=== PATIENT | female | born 1945 | race Caucasian/White ===

== ENCOUNTER 2017-02-28 10:16 | Emergency (ER) | payer MEDICARE, OTHER ==
[~2017-02-28] VITALS: Ht 157.5 cm; Wt 56.0 kg
[~2017-02-28 10:16] MED LIST: A STATIN; BP MEDS; LIDO5DIS35 TD; LOVOXYL
[2017-02-28 10:29] VITALS: BP 153/77; PULSE 78; RESP 18; TEMP 98.1; O2SAT 97
[2017-02-28] MEDS ORDERED: SIMV20TA PO (10:35)
[2017-02-28] MEDS ORDERED: ZOLP5TAB3 PO (10:35)
[2017-02-28] MEDS ORDERED: LEVO25TA4 PO (10:35)
[2017-02-28] MEDS ORDERED: AMLO10TA2 PO (10:35)
[2017-02-28] MEDS ORDERED: FAMOTIDINE 20 MG/2 ML VIAL IV PUSH ONE (10:45)
[2017-02-28] MEDS ORDERED: SODIUM CHLORIDE 0.9% FLUSH 10 ML FLUSH IV FLUSH PRN (10:45)
[2017-02-28] MEDS ORDERED: LIDOCAINE VISCOUS 2% SOLN 15 ML UDC PO ONE (10:45)
[2017-02-28] MEDS ORDERED: ALUMINUM/MAGNESIUM/SIMETH 30 ML CUP PO ONE (10:45)
[2017-02-28 10:58] LABS: AUTOMATED NEUTROPHIL # 4.1 TH/MM3 (1.8-7.7); BASOPHIL % 0.4 % (0.0-2.0); EOSINOPHIL # 0.1 TH/MM3 (0-0.4); EOSINOPHIL % 1.1 % (0.0-4.0); HEMATOCRIT 39.1 % (35.0-46.0); HEMO FLAGS DIFF FINAL; LYMPH % 25.1 % (9.0-44.0); LYMPHOCYTE # 1.7 TH/MM3 (1.0-4.8); MEAN CELL VOLUME 86.6 FL (80.0-100.0); MEAN CORPUSCULAR HEMOGLOBIN 28.5 PG (27.0-34.0); MEAN CORPUSCULAR HGB CONC 32.9 % (32.0-36.0); MONO % 10.9 % (0.0-8.0); NEUT % 62.5 % (16.0-70.0); PLATELET COUNT 282 TH/MM3 (150-450); RED BLOOD COUNT 4.52 MIL/MM3 (4.00-5.30); RED CELL DISTRIBUTION WIDTH 13.7 % (11.6-17.2); WHITE BLOOD COUNT 6.6 TH/MM3 (4.0-11.0)
--- NOTE | 2017-02-28 10:58 | PD ---
HPI Chief Complaint: GI Complaint Time Seen by Provider: 10:35 Travel History International Travel<30 days: No Contact w/Intl Traveler<30days: No Traveled to known affect area: No History of Present Illness HPI The patient is a 71-year-old female who presents to the emergency department for a five-week history of intermittent nausea, bloating, and epigastric discomfort. The patient saw her primary physician in [place] who diagnosed her with GERD. The patient was initially placed on Nexium, however, continue to have nausea and be symptomatic. Therefore, the Nexium was stopped and the patient was placed on Zantac. The patient states her symptoms are worse after eating, lying supine, and occasionally awaken her at night. The patient's symptoms are improved when she gets up and ambulates. The patient does note decreased appetite secondary to her current symptoms. The only previous abdominal surgery was a D&C, she denies any known history of choledocholithiasis, cholelithiasis, or pancreatitis. The patient denies any current chest pain or shortness of breath. The patient does occasionally complain of pain that radiates up to the jaw when she is lying supine. The patient does have an appointment with a senior technical business analyst on March 29, after she returns home to [place]. The patient denies any fever, chills, or sweats. Patient has a history of chronic constipation and takes MiraLAX daily, denies any change in bowel habits. PFSH Past Medical History High Cholesterol: Yes Hypertension: Yes Immunizations Current: Yes Thyroid Disease: Yes Triglycerides - High: Yes Influenza Vaccination: Yes ?: Not Menopausal: Yes Dilation and Curettage (D&C): Yes Past Surgical History Other Surgery: Yes (LUMPECTOMY ) Social History Alcohol Use: No Tobacco Use: No Substance Use: No Allergies-Medications (Allergen,Severity, Reaction): Coded Allergies: Sulfa (Verified Adverse Reaction, Mild, Rash, 02/28/17) Reported Meds & Prescriptions Reported Meds & Active Scripts Active Reported Zolpidem (Zolpidem Tartrate) 5 Mg Tab 5 Mg PO HS PRN Simvastatin 20 Mg Tab 20 Mg PO DAILY Amlodipine (Amlodipine Besylate) 10 Mg Tab 10 Mg PO DAILY Levothyroxine (Levothyroxine Sodium) 25 Mcg Tab 25 Mcg PO DAILY Review of Systems Except as stated in HPI: all other systems reviewed are Neg General / Constitutional: No: Fever Cardiovascular: No: Chest Pain or Discomfort Respiratory: No: Shortness of Breath Gastrointestinal: Positive: Nausea, Constipation (chronic constipation), Indigestion, Loss of Appetite, No: Vomiting, Diarrhea, Abdominal Pain, Changes in Bowel Habits Genitourinary: No: Dysuria Physical Exam Narrative GENERAL: Awake, alert, pleasant 71-year-old female who appears her stated age and is in no acute respiratory distress. SKIN: Focused skin assessment warm/dry. HEAD: Atraumatic. Normocephalic. EYES: Pupils equal and round. No scleral icterus. No injection or drainage. ENT: No nasal bleeding or discharge. Mucous membranes pink and moist. NECK: Trachea midline. No JVD. CARDIOVASCULAR: Regular rate and rhythm. No murmur appreciated. RESPIRATORY: No accessory muscle use. Clear to auscultation. Breath sounds equal bilaterally. GASTROINTESTINAL: Abdomen soft, minimal epigastric tenderness, negative Blanca' s. Negative McBurney's. No rebound tenderness, guarding, or rigidity. MUSCULOSKELETAL: No obvious deformities. No clubbing. No cyanosis. No edema. NEUROLOGICAL: Awake and alert. No obvious cranial nerve deficits. Motor grossly within normal limits. Normal speech. PSYCHIATRIC: Appropriate mood and affect; insight and judgment normal. Data Data Last Documented VS Vital Signs Date Time Temp Pulse Resp B/P Pulse Ox O2 Delivery O2 Flow Rate FiO2 02/28/17 11:00 98 Room Air 02/28/17 10:29 98.1 78 18 153/77 Orders Complete Blood Count With Diff (02/28/17 10:45) Comprehensive Metabolic Panel (02/28/17 10:45) Lipase (02/28/17 10:45) Iv Access Insert/Monitor (02/28/17 10:45) Ecg Monitoring (02/28/17 10:45) Oximetry (02/28/17 10:45) Sodium Chloride 0.9% Flush (Ns Flush) (02/28/17 10:45) Famotidine Inj (Pepcid Inj) (02/28/17 10:45) Al-Mag Hy-Si 40-40-4 Mg/Ml Liq (Mag-Al P (02/28/17 10:45) Lidocaine 2% Viscous (Xylocaine 2% Visco (02/28/17 10:45) Troponin I (02/28/17 10:45) Creatine Kinase (Cpk) (02/28/17 10:45) Labs Laboratory Tests Test 02/28/17 10:30 White Blood Count 6.6 TH/MM3 Red Blood Count 4.52 MIL/MM3 Hemoglobin 12.9 GM/DL Hematocrit 39.1 % Mean Corpuscular Volume 86.6 FL Mean Corpuscular Hemoglobin 28.5 PG Mean Corpuscular Hemoglobin 32.9 % Concent Red Cell Distribution Width 13.7 % Platelet Count 282 TH/MM3 Mean Platelet Volume 8.3 FL Neutrophils (%) (Auto) 62.5 % Lymphocytes (%) (Auto) 25.1 % Monocytes (%) (Auto) 10.9 % Eosinophils (%) (Auto) 1.1 % Basophils (%) (Auto) 0.4 % Neutrophils # (Auto) 4.1 TH/MM3 Lymphocytes # (Auto) 1.7 TH/MM3 Monocytes # (Auto) 0.7 TH/MM3 Eosinophils # (Auto) 0.1 TH/MM3 Basophils # (Auto) 0.0 TH/MM3 CBC Comment DIFF FINAL Differential Comment Sodium Level 146 MEQ/L Potassium Level 3.5 MEQ/L Chloride Level 107 MEQ/L Carbon Dioxide Level 30.9 MEQ/L Anion Gap 8 MEQ/L Blood Urea Nitrogen 15 MG/DL Creatinine 0.63 MG/DL Estimat Glomerular Filtration 93 ML/MIN Rate Random Glucose 94 MG/DL Calcium Level 9.5 MG/DL Total Bilirubin 0.5 MG/DL Aspartate Amino Transf 17 U/L (AST/SGOT) Alanine Aminotransferase 21 U/L (ALT/SGPT) Alkaline Phosphatase 95 U/L Total Creatine Kinase 76 U/L Troponin I LESS THAN 0.02 NG/ML Total Protein 7.5 GM/DL Albumin 3.7 GM/DL Lipase 103 U/L [facility] Medical Decision Making Medical Screen Exam Complete: Yes Emergency Medical Condition: Yes Medical Record Reviewed: Yes Interpretation(s) EKG reveals normal sinus rhythm with a rate of 72. Nonspecific T wave changes. Laboratory Tests Test 02/28/17 10:30 White Blood Count 6.6 TH/MM3 Red Blood Count 4.52 MIL/MM3 Hemoglobin 12.9 GM/DL Hematocrit 39.1 % Mean Corpuscular Volume 86.6 FL Mean Corpuscular Hemoglobin 28.5 PG Mean Corpuscular Hemoglobin 32.9 % Concent Red Cell Distribution Width 13.7 % Platelet Count 282 TH/MM3 Mean Platelet Volume 8.3 FL Neutrophils (%) (Auto) 62.5 % Lymphocytes (%) (Auto) 25.1 % Monocytes (%) (Auto) 10.9 % Eosinophils (%) (Auto) 1.1 % Basophils (%) (Auto) 0.4 % Neutrophils # (Auto) 4.1 TH/MM3 Lymphocytes # (Auto) 1.7 TH/MM3 Monocytes # (Auto) 0.7 TH/MM3 Eosinophils # (Auto) 0.1 TH/MM3 Basophils # (Auto) 0.0 TH/MM3 CBC Comment DIFF FINAL Differential Comment Sodium Level 146 MEQ/L Potassium Level 3.5 MEQ/L Chloride Level 107 MEQ/L Carbon Dioxide Level 30.9 MEQ/L Anion Gap 8 MEQ/L Blood Urea Nitrogen 15 MG/DL Creatinine 0.63 MG/DL Estimat Glomerular Filtration 93 ML/MIN Rate Random Glucose 94 MG/DL Calcium Level 9.5 MG/DL Total Bilirubin 0.5 MG/DL Aspartate Amino Transf 17 U/L (AST/SGOT) Alanine Aminotransferase 21 U/L (ALT/SGPT) Alkaline Phosphatase 95 U/L Total Creatine Kinase 76 U/L Troponin I LESS THAN 0.02 NG/ML Total Protein 7.5 GM/DL Albumin 3.7 GM/DL Lipase 103 U/L Differential Diagnosis Differential diagnosis includes gastritis, GERD, esophagitis, Martinez's esophagus, peptic ulcer disease, pancreatitis, biliary colic, cholelithiasis, angina. Narrative Course IV was established, labs were drawn and sent, and the patient was placed on cardiac telemetry monitoring and continuous pulse oximetry monitoring. EKG was ordered and interpreted. The patient was administered Pepcid intravenously and GI cocktail. Labs are unremarkable except for sodium of 146. LFTs and lipase are normal. Troponin and CPK are unremarkable. Patient's symptoms have been ongoing, may be secondary to gastritis and/or GERD with possible secondary esophagitis and/or Martinez's esophagus. The patient is advised to take a proton pump inhibitor and Zantac daily and a follow-up with gastroenterology. The patient is also advised that she may benefit from endoscopy. The patient will be provided a copy of her labs at discharge as well as a prescription for Protonix and Zantac. Diagnosis Primary Impression: Gastritis Qualified Code: K29.70 - Gastritis, presence of bleeding unspecified, unspecified chronicity, unspecified gastritis type Patient Instructions: General Instructions Additional Instructions: Please provide a patient a copy of her labs at discharge. Protonix once a day and Zantac twice a day as directed. Follow-up with gastroenterology. You may benefit from outpatient endoscopy. Med/Other Pt SpecificInfo: Prescription(s) given Scripts Ranitidine (Zantac)150 Mg [id number] Mg PO BID #60 TAB Ref 0 Prov:Shyam Gallagher MD 02/28/17 Pantoprazole (Protonix)40 Mg Tab40 Mg PO DAILY #30 TAB Ref 0 Prov:Shyam Gallagher MD 02/28/17 Disposition: 01 DISCHARGE HOME Condition: Stable Shyam Gallagher MD Feb 28, 2017 10:58
[2017-02-28 11:00] VITALS: O2SAT 98
[2017-02-28 11:03] LABS: CHLORIDE 107 MEQ/L (98-107); POTASSIUM 3.5 MEQ/L (3.5-5.1); SODIUM (NA) 146 MEQ/L (136-145)
[2017-02-28 11:07] LABS: ANION GAP 8 MEQ/L (5-15); BICARBONATE 30.9 MEQ/L (21.0-32.0); BLOOD UREA NITROGEN 15 MG/DL (7-18)
[2017-02-28 11:10] LABS: ALT (GPT) 21 U/L (10-53); AST (GOT) 17 U/L (15-37); GLOMERULAR FILTRATION RATE 93 ML/MIN (>89)
[2017-02-28 11:11] LABS: TOTAL BILIRUBIN ADULT 0.5 MG/DL (0.2-1.0)
[2017-02-28 11:13] LABS: ALKALINE PHOSPHATASE 95 U/L (45-117)
[2017-02-28 11:14] LABS: CREATINE KINASE 76 U/L (26-192)
[2017-02-28] MEDS ORDERED: PROT40TA PO (11:45)
[2017-02-28] MEDS ORDERED: ZANT150T2 PO (11:45)
[2017-02-28 11:50] VITALS: BP 110/63; PULSE 80; RESP 16; O2SAT 98
--- NOTE | 2017-03-01 10:33 | EKG ---
Date Performed: 02/28/2017 Time Performed: 10:23:00 PTAGE: 71 years EKG: Sinus rhythm Left anterior fascicular block Borderline ECG NO PREVIOUS TRACING DOCTOR: Leona Mcghee Interpretating Date/Time 03/01/2017 10:27:08
== END 2017-02-28 11:57 | disposition home or self-care (01) ==
LOC: PHED 10:16
DX: K29.70 Gastritis, unspecified, without bleeding (principal); K59.09 Other constipation; K21.9 Gastro-esophageal reflux disease without esophagitis; E78.00 Pure hypercholesterolemia, unspecified; I10 Essential (primary) hypertension; Z79.899 Other long term (current) drug therapy; Z88.2 Allergy status to sulfonamides
CPT/HCPCS: 80053; 82550; 83690; 84484; 85025; 93005; 96374